=== PATIENT | female | born 1985 | race Two or more races ===

== ENCOUNTER 2017-05-15 00:56 | Emergency (ER) | payer BC ==
[~2017-05-15] VITALS: Ht 162.6 cm; Wt 60.3 kg
[2017-05-15] MEDS ORDERED: POTASSIUM CHLORIDE 10 MEQ TABCR PO ONE (02:00)
[2017-05-15 04:15] VITALS: BP 107/76
== END 2017-05-15 03:30 | disposition home or self-care (01) ==
LOC: FSED 00:56
DX: R07.89 Other chest pain (principal)
CPT/HCPCS: 80053; 82553; 84484; 85025; 93005; 99283